=== PATIENT | female | born 1995 | race Caucasian/White ===

== ENCOUNTER 2016-09-28 02:58 | Inpatient (IN) | payer BC ==
[2016-09-28] MEDS ORDERED: Oxytocin/Lactated Ringers 30 UNIT/500 ML BAG ONE (03:15)
[2016-09-28] MEDS ORDERED: Sodium Chloride 0.9% 10 ML Syringe FLUSH PRN (03:25)
[2016-09-28] MEDS ORDERED: Water For Irrigation,Sterile 1,000 ML Container IRR PRN (03:25)
[2016-09-28] MEDS ORDERED: Misoprostol 200 MCG Tab PO PRN (03:25)
[2016-09-28] MEDS ORDERED: Lidocaine 1% 50 ML MDV INJECT PRN (03:25)
[2016-09-28] MEDS ORDERED: Carboprost Tromethamine 250 MCG/1 ML Amp IM PRN (03:25)
[2016-09-28] MEDS ORDERED: Methylergonovine 0.2 MG/1 ML Amp IM PRN (03:25)
[2016-09-28] MEDS ORDERED: Sodium Chloride 0.9% 2.5 ML Syringe FLUSH PRN (03:25)
[2016-09-28] MEDS ORDERED: Nalbuphine 10 MG/1 ML Vial IVPUSH PRN (03:25)
[2016-09-28] MEDS ORDERED: Butorphanol 1 MG/ML SDV IVPUSH PRN (03:25)
[2016-09-28] MEDS ORDERED: Lactated Ringers 1,000 ML IV SCH (03:30)
[2016-09-28] MEDS ORDERED: Oxytocin/Lactated Ringers 30 UNIT/500 ML BAG IV SCH (03:30)
[2016-09-28] MEDS ORDERED: Lidocaine 1% 50 ML MDV ONE (03:40)
[2016-09-28] MEDS ORDERED: Acetaminophen 500 MG Tab PO PRN (04:06)
[2016-09-28] MEDS ORDERED: Aluminum Hydroxide/Magnesium Hydroxide/Simethicone Susp 30 ML Cup PO PRN (04:06)
[2016-09-28] MEDS ORDERED: Bisacodyl 10 MG Supp RECTAL PRN (04:06)
[2016-09-28] MEDS ORDERED: Lanolin 100% Cream 7 GM Tube TOP PRN (04:06)
[2016-09-28] MEDS ORDERED: Docusate Sodium 100 MG Cap PO PRN (04:06)
[2016-09-28] MEDS ORDERED: oxyCODONE 5 MG Tab PO PRN (04:06)
[2016-09-28] MEDS ORDERED: Witch Hazel Medicated Pads 40/Jar TOP PRN (04:06)
[2016-09-28] MEDS ORDERED: Simethicone 80 MG Tab.Chew PO PRN (04:06)
[2016-09-28] MEDS ORDERED: Benzocaine/Menthol 20%-0.5% Spray 78 GM Cannister TOP PRN (04:06)
[2016-09-28] MEDS ORDERED: Ibuprofen 400 MG Tab PO PRN (04:06)
[2016-09-28] MEDS: Acetaminophen 500 MG Tab PO PRN ×2 (04:18→11:17)
[2016-09-28] MEDS: Ibuprofen 800 MG Tab PO PRN ×3 (04:18→22:14)
--- NOTE | 2016-09-28 04:58 | OR ---
SURGEON: Amber Collado M.D. DATE OF PROCEDURE: 09/28/2016 Delivery Note. PREOPERATIVE DIAGNOSES: 1. A 39 and 1 week intrauterine . 2. Active labor. POSTOP DIAGNOSIS: 1. A 39 and 1 week intrauterine . 2. Active labor. PROCEDURE: Spontaneous vaginal delivery, intact perineum. ESTIMATED BLOOD LOSS: 300 mL. ANESTHESIA: Pudendal/local. FINDINGS: Term male, score 8 at 1 minute, 9 at 5 minute. Weight 3260 g. Spontaneous delivery, intact placenta, 3-vessel cord. DISPOSITION: to Nursery, mom in LDRP. PROCEDURE IN DETAIL: Karen is a 21-year-old, G2, P1, at 39 and 1 week gestational age. This morning with intense contractions began at 1:00 am. Upon arrival, she was found to be complete 100% effaced, 0 station. Therefore, she was admitted, routine labs were drawn. heart tones 140. The patient is feeling the urge to push. Amniotomy was performed. Clear fluid was noted. The head was now +2 station. The patient was placed in modified dorsolithotomy position. Prepped and draped in usual aseptic manner and was able to push with the next 2 contractions. She is having quite a lot of discomfort with pushing efforts. When discussing options with her, she would like to proceed with pudendal block. Therefore, the ischial spines were palpated on either side and pudendal notch. There was 5 mL 1% lidocaine instilled into the right pudendal notch area followed by the left pudendal notch area and another 5 mL along the midline perineum. The patient became much more comfortable with this and continued with pushing efforts. With the next few contractions, she was able to bring the head to a +4 station, delivered the head followed by anterior shoulder, posterior shoulder, and main body without difficulty. Infant's oropharynx and nares was bulb suctioned. Cord clamped x2 and cut. was crying vigorously. Cord arterial, cord venous, cord blood samples obtained. Light pressure was applied while the placenta was delivered spontaneously intact. Vigorous fundal uterine massage was then applied 30 units of Pitocin was delivered in 500 mL IV fluid. Upon inspection of cervix, vaginal sidewalls, and perineum, it was found to be intact. Uterus remained firm. Hemostasis evident. Sponge count was correct. The patient remained in LDRP. in Telephone Nursery. GEOVANI / RUTH ANN /[id number]
--- NOTE | 2016-09-29 07:32 | PCM.PNPP ---
- General Info Date of Service: 09/29/16 Functional Status: Reports: pain controlled, tolerating diet, ambulating, urinating - Review of Systems General: Reports: No Symptoms HEENT: Reports: no symptoms Pulmonary: Reports: no symptoms Cardiovascular: Reports: No Symptoms Gastrointestinal: Reports: No symptoms Genitourinary: Reports: no symptoms Musculoskeletal: Reports: no symptoms Skin: Reports: no symptoms Neurological: Reports: No Symptoms Psychiatric: Reports: no symptoms - General Info Date of Service: 09/29/16 - Patient Data Vital Signs - most recent: Last Vital Signs Temp 36.2 C 09/29/16 03:00 Pulse 63 09/29/16 03:00 Resp 16 09/29/16 03:00 BP 113/66 09/29/16 03:00 Pulse Ox 98 09/29/16 03:00 Weight - most recent: 68.039 kg Lab Results - last 24 hrs: Laboratory Results - last 24 hr 09/29/16 Range/Units 06:10 Hgb 9.8 L (12.0-16.0) g/dL Hct 31.3 L (36.0-46.0) % Med Orders - Current: Current Medications Acetaminophen (Tylenol Extra Strength) 500 mg PO Q4H PRN PRN Reason: Pain Acetaminophen (Tylenol Extra Strength) 1,000 mg PO Q4H PRN PRN Reason: Pain Last Admin: 09/28/16 11:17 Dose: 1,000 mg Al Hydroxide/Mg Hydroxide (Mag-Al Plus) 30 ml PO Q8H PRN PRN Reason: Heartburn Benzocaine/Menthol (Dermoplast Pain Relief 20%-0.5% [place]) 78 gm TOP ASDIRECTED PRN PRN Reason: Perineal Comfort Measure Last Admin: 09/28/16 04:17 Dose: 78 gm Bisacodyl (Dulcolax) 10 mg RECTAL .ONCE PRN PRN Reason: Constipation Butorphanol Tartrate (Stadol) 1 mg IVPUSH Q1H PRN PRN Reason: Pain Carboprost Tromethamine (Hemabate Ds) 250 mcg IM ASDIRECTED PRN PRN Reason: Post Hemorrhage Docusate Sodium (Colace) 100 mg PO BID PRN PRN Reason: Constipation Last Admin: 09/28/16 22:14 Dose: 100 mg Emollient Ointment (Lansinoh Hpa) 0 gm TOP ASDIRECTED PRN PRN Reason: Sore Nipples Lactated Ringer's (Ringers, Lactated) 1,000 mls @ 150 mls/hr IV ASDIRECTED [place] Ibuprofen (Motrin) 400 mg PO Q4H PRN PRN Reason: Pain Ibuprofen (Motrin) 800 mg PO Q6H PRN PRN Reason: Pain Last Admin: 09/28/16 22:14 Dose: 800 mg Lidocaine HCl (Xylocaine 1%) 50 ml INJECT .ONCE PRN PRN Reason: Laceration repair Last Admin: 09/28/16 04:00 Dose: 50 ml Methylergonovine Maleate (Methergine) 0.2 mg IM ASDIRECTED PRN PRN Reason: Post Hemorrhage Misoprostol (Cytotec) 200 mcg PO .ONCE PRN PRN Reason: Post Hemorrhage Oxycodone HCl (Oxycodone) 5 mg PO Q2H PRN PRN Reason: Pain Last Admin: 09/28/16 04:17 Dose: 5 mg Simethicone (Simethicone) 80 mg PO Q4H PRN PRN Reason: Gas Sodium Chloride (Saline Flush) 10 ml FLUSH ASDIRECTED PRN PRN Reason: Keep Vein Open Sodium Chloride (Saline Flush) 2.5 ml FLUSH ASDIRECTED PRN PRN Reason: Keep Vein Open Sterile Water (Sterile Water For Irrigation) 1,000 ml IRR ASDIRECTED PRN PRN Reason: delivery Last Admin: 09/28/16 04:00 Dose: 1,000 ml Witch Thu (Tucks) 1 pad TOP ASDIRECTED PRN PRN Reason: comfort care Discontinued Medications Oxytocin/Lactated Ringer's (Pitocin In Lr 30 Units/500 Ml) Confirm Administered Dose 30 unit in 500 mls @ as directed .ROUTE .STK-MED ONE Stop: 09/28/16 03:16 Oxytocin/Lactated Ringer's (Pitocin In Lr 30 Units/500 Ml) 30 unit in 500 mls @ 250 mls/hr IV TITRATE [place] PRN Reason: 250 MUNITS/MIN Stop: 09/28/16 05:29 Last Admin: 09/28/16 03:55 Dose: 250 munits/min, 250 mls/hr Lidocaine HCl (Xylocaine 1%) Confirm Administered Dose 50 ml .ROUTE .STK-MED ONE Stop: 09/28/16 03:41 Nalbuphine HCl (Nubain) 10 mg IVPUSH Q1H PRN PRN Reason: Pain (severe 7-10) Stop: 09/28/16 05:26 - Interaction Disposition, : in Room with Family Interaction: Holding Infant Feeding: Breastfed Infant; Nursed Well Support Person: - Recovery Exam Fundal Tone: Firm Fundal Level: 3 Fingerbreadths Below Umbilicus Fundal Placement: Midline Lochia Amount: Scant Lochia Color: Rubra/Red Perineum Description: Intact, Minimal Bruising/Swelling Episiotomy/Laceration: None Bladder Status: Voiding - Exam General: alert, oriented HEENT: Pupils equal Neck: supple Lungs: Normal respiratory effort Abdomen: soft, no tenderness, no distension Extremities: no edema Skin: warm, dry, intact Neurological: no new focal deficit Psy/Mental Status: alert, normal affect, normal mood - Problem List & Annotations (1) Vaginal delivery SNOMED Code(s): 744383089 Code(s): O80 - ENCOUNTER FOR FULL-TERM UNCOMPLICATED DELIVERY Status: Acute Current Visit: No - Problem List Review Problem List Initiated/Reviewed/Updated: Yes - Assessment Assessment:: PPD#1 after , nursing well, minimal lochia, minimal pain, would like to go home today. Mood is stable. - Plan Plan:: Dismiss to home, follow up in 6 weeks, continue vitamins while .
[2016-09-29 14:43] VITALS: BP 117/65
== END 2016-09-29 11:00 | disposition home or self-care (01) | DRG 560 ==
LOC: MW.OBCHECK 02:58 → MW.OB 03:01 → MW.OBCHECK 03:14 → OBSVTOIN 03:52
PROVIDERS: ADMIT Obstetrics & Gynecology; ATTEND Obstetrics & Gynecology
PROC: 10E0XZZ Delivery of Products of Conception, External Approach (ICD-10-PCS; principal; 2016-09-28)
PROC: 10907ZC Drainage of Amniotic Fluid, Therapeutic from Products of Conception, Via Natural or Artificial Opening (ICD-10-PCS; 2016-09-28)
DX: O80 Encounter for full-term uncomplicated delivery (principal); Z3A.39 39 weeks gestation of pregnancy; Z37.0 Single live birth
CPT/HCPCS: 36415; 85014; 85018; 85027; 86850; 86900; 86901; A9270-GY